=== PATIENT | female | born 1995 | race Caucasian/White ===

== ENCOUNTER 2024-12-30 05:27 | Inpatient (IN) | payer OTHER ==
[2024-12-30 06:28] VITALS: BMI 34.1
[2024-12-30] MEDS ORDERED: Ibuprofen 800 MG TAB PO PRN (06:37)
[2024-12-30] MEDS ORDERED: HYDROcodone/Acetaminophen 5/325 mg Tablet PO PRN (06:37)
[2024-12-30] MEDS ORDERED: Lidocaine 1% (PF) 30 ML VIAL SC PRN (06:37)
[2024-12-30] MEDS ORDERED: Carboprost 250 MCG/ML AMP IM PRN (06:37)
[2024-12-30] MEDS ORDERED: Diphenoxylate HCl/Atropine Tablet PO PRN (06:37)
[2024-12-30] MEDS ORDERED: Oxytocin 30 units/NS 500 ML 500 ML IV SCH (06:37)
[2024-12-30] MEDS ORDERED: hydrALAZINE 20 MG/ML VIAL SLOW IVP PRN (06:37)
[2024-12-30] MEDS ORDERED: Methylergonovine 0.2 MG/ML VIAL IM PRN (06:37)
[2024-12-30] MEDS ORDERED: Acetaminophen 500 MG TAB PO PRN (06:37)
[2024-12-30 07:02] LABS: Hematocrit 30.6 % (34.9-44.5); Hemoglobin 9.5 g/dL (12.0-15.5); Mean Corpuscular Hemoglobin 23.3 pg (27.0-33.0); Mean Corpuscular Volume 75.2 fL (81.6-98.3); Platelet Count 181 10x3/uL (150-450); Red Blood Cell (RBC) Count 4.07 10x6/uL (3.90-5.03); White Blood Cell (WBC) Count 11.30 10x3/uL (3.5-10.5)
[2024-12-30] MEDS: Oxytocin 30 units/NS 500 ML 500 ML IV SCH (07:28)
[2024-12-30 07:36] LABS: Hep B Surf Ag - L&D Non-Reactive S/CO (NonReactive)
[2024-12-30 07:37] LABS: Syphilis Antibody Index 0.03 S/CO (<1.00 Non-Reactive)
[2024-12-30] MEDS: fentaNYL/Ropivacaine Epidural 100 ML ONE (14:36)
[2024-12-30] MEDS ORDERED: Ondansetron PF 4 MG/2 ML Vial IVP PRN (14:47)
[2024-12-30] MEDS ORDERED: Acetaminophen 325 MG TAB PO PRN (14:47)
[2024-12-30] MEDS ORDERED: diphenhydrAMINE 50 MG/ML VIAL IVP PRN (14:47)
[2024-12-30] MEDS ORDERED: Communication Order-Pharmacy FS SCH (15:00)
[2024-12-30] MEDS: Ondansetron PF 4 MG/2 ML Vial IVP PRN (20:42)
[2024-12-30] MEDS: Acetaminophen 500 MG TAB PO SCH (22:17)
[2024-12-30] MEDS: fentaNYL 2 mcg/Ropivacaine 0.2% Epidural 100 ML CADD EPIDURAL SCH (22:27)
[2024-12-30] MEDS: Gentamicin Sulfate 385 MG in Sodium Chloride 0.9% 100 ML IVPB SCH (22:42)
[2024-12-31] MEDS: CEFAZOLIN 2 GM VIAL ONE (01:40)
[2024-12-31] MEDS ORDERED: Ondansetron PF 4 MG/2 ML Vial IVP PRN ×2 (02:07)
[2024-12-31] MEDS ORDERED: diphenhydrAMINE 50 MG/ML VIAL IVP PRN (02:07)
[2024-12-31] MEDS ORDERED: Communication Order-Pharmacy FS SCH (02:15)
[2024-12-31] MEDS ORDERED: Ketorolac Tromethamine 30 MG (1 mL) VIAL IVP SCH (02:15)
[2024-12-31] MEDS: Ketorolac Tromethamine 30 MG (1 mL) VIAL IVP PRN ×2 (03:56→16:13)
[2024-12-31] MEDS: Hepatitis B Vaccine 10 MCG/0.5 ML SYR ONE (07:55)
[2024-12-31] MEDS: Erythromycin Base 0.5% Oint 1 GM TUBE ONE (07:55)
[2024-12-31] MEDS: Azithromycin 500 MG VIAL ONE (07:56)
[2024-12-31] MEDS: Dexamethasone 10 MG/ML VIAL ONE (07:56)
[2024-12-31] MEDS: Famotidine/PF 20 mg/2ml Vial ONE (07:56)
[2024-12-31] MEDS: PHENYLEPHRINE-NS 100 MCG/ML 10 ML SYRINGE ONE (07:56)
[2024-12-31] MEDS: Ondansetron PF 4 MG/2 ML Vial ONE (07:56)
[2024-12-31] MEDS: Oxytocin 10 UNITS/ML VIAL ONE ×2 (07:56→07:57)
[2024-12-31] MEDS: SUCCINYLCHOLINE/SOD CL,ISO/PF 200 MG/10 ML SYRINGE FS ONE (07:57)
[2024-12-31] MEDS: PROPOFOL 20 ML ONE (07:57)
[2024-12-31] MEDS: KETAMINE 100 MG/ML (5ML VIAL) ONE (07:57)
[2024-12-31] MEDS ORDERED: Acetaminophen 325 MG TAB PO PRN (08:30)
[2024-12-31] MEDS ORDERED: Oxytocin 30 units/NS 500 ML 500 ML IV SCH (08:30)
[2024-12-31] MEDS ORDERED: hydrALAZINE 20 MG/ML VIAL SLOW IVP PRN ×2 (08:30→08:46)
[2024-12-31] MEDS ORDERED: Methylergonovine 0.2 MG TAB PO PRN (08:30)
[2024-12-31] MEDS ORDERED: Methylergonovine 0.2 MG/ML VIAL IM PRN (08:30)
[2024-12-31] MEDS ORDERED: Lanolin Ointment 7 GM TUBE TOP PRN (08:46)
[2024-12-31] MEDS ORDERED: HYDROcodone/Acetaminophen 5/325 mg Tablet PO PRN ×2 (08:46)
[2024-12-31] MEDS ORDERED: diphenhydrAMINE 25 MG CAP PO PRN (08:46)
[2024-12-31] MEDS ORDERED: Bisacodyl 10 MG SUPP PR PRN (08:46)
[2024-12-31] MEDS: Ferrous Sulfate 325 MG TAB PO SCH (09:23)
[2024-12-31] MEDS: Boostrix 0.5 ML (Tdap) VIAL (>/=7 yrs of age) IM ONE (11:56)
[2024-12-31] MEDS ORDERED: Bupivacaine 0.25% HCL 30 ML VIAL ONE (18:19)
[2024-12-31] MEDS ORDERED: Bupivacaine HCl 0.5%/Epinephrine 1:200,000/PF 30 ml Vial ONE (18:19)
[2024-12-31] MEDS ORDERED: Lidocaine 2% MPF 10 ML AMP (For Epidural Use) ONE (18:19)
[2024-12-31] MEDS: HYDROcodone/Acetaminophen 5/325 mg Tablet PO PRN (21:40)
[2025-01-01 05:41] LABS: Hematocrit 23.1 % (34.9-44.5); Hemoglobin 7.1 g/dL (12.0-15.5); Mean Corpuscular Hemoglobin 24.0 pg (27.0-33.0); Mean Corpuscular Volume 78.0 fL (81.6-98.3); Platelet Count 172 10x3/uL (150-450); Red Blood Cell (RBC) Count 2.96 10x6/uL (3.90-5.03); White Blood Cell (WBC) Count 17.65 10x3/uL (3.5-10.5)
[2025-01-01] MEDS: HYDROcodone/Acetaminophen 5/325 mg Tablet PO PRN (09:06)
[2025-01-01] MEDS: Ibuprofen 800 MG TAB PO SCH (21:45)
[2025-01-02] MEDS: Simethicone Chewable 80 MG TAB PO PRN (08:38)
[2025-01-02 08:45] LABS: Hematocrit 24.5 % (34.9-44.5); Hemoglobin 7.4 g/dL (12.0-15.5)
[2025-01-03 08:16] VITALS: BP 109/64; TEMP 97.7
[2025-01-03] MEDS ORDERED: Sucrose 24% 2 ML Dropette ONE (10:50)
== END 2025-01-03 14:10 | disposition home or self-care (01) | DRG 787 ==
LOC: CSHLD 05:27 → CSHPP 12-31 06:00
PROVIDERS: ADMIT Student in an Organized Health Care Education/Training Program; ATTEND Student in an Organized Health Care Education/Training Program
PROC: 10D00Z1 Extraction of Products of Conception, Low, Open Approach (ICD-10-PCS; principal; 2024-12-31)
DX: O76 Abnormality in fetal heart rate and rhythm complicating labor and delivery (principal); D62 Acute posthemorrhagic anemia; O62.1 Secondary uterine inertia; Z3A.39 39 weeks gestation of pregnancy; Z37.0 Single live birth; Z79.82 Long term (current) use of aspirin; Z88.8 Allergy status to other drugs, medicaments and biological substances; O34.83 Maternal care for other abnormalities of pelvic organs, third trimester; D27.0 Benign neoplasm of right ovary
CPT/HCPCS: 36415; 51702; 85014; 85018; 85027; 86780; 86850; 86900; 86901; 87340; 88304; J0290; J0595; J0665; J1100; J1308; J1580; J1885; J2175; J2250; J2274; J2405; J2590; J2704; J3010; J7120